=== PATIENT | male | born 1950 | race Asian ===

== ENCOUNTER 2017-06-23 05:58 | Day surgery (SDC) | payer OTHER ==
[2017-06-23] VITALS (10 sets, daily range): BP systolic 140–172; BP diastolic 67–81; PULSE 72–80; RESP 12–19; Ht 180.3 cm; Wt 98.1 kg
[~2017-06-23] VITALS: Ht 180.3 cm; Wt 98.1 kg
[2017-06-23] MEDS ORDERED: MOXIFLOXACIN 0.5% 3 ML OPH OPER SCH (06:00)
[2017-06-23] MEDS ORDERED: TROPICAMIDE 1% 2 ML OPH OPER SCH (06:00)
[2017-06-23] MEDS ORDERED: DICLOFENAC 0.1% 2.5 ML OPH OPER SCH (06:00)
[2017-06-23] MEDS ORDERED: SOD CHLORIDE 0.9% 1,000 ML IV SCH (06:00)
[2017-06-23] MEDS ORDERED: CYCLOPENTOLATE/PHENYLEPH 2 ML OPH OPER SCH (06:00)
--- NOTE | 2017-06-23 06:52 | PREOPHP ---
DATE OF ADMISSION: 06/23/2017 HISTORY OF PRESENT ILLNESS: This -[id number]-wmh gentleman is admitted for elective cataract surgery of the left eye. The patient has had decreased vision for the past year's time involving both eyes . 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 Patient's systemic history is positive for insulin-dependent diab etes mellitus for the past 15 years as well as systemic hypertension and diabetic neuropathy. CURRENT MEDICATIONS INCLUDE: 1. Metformin. 2. Gabapentin. 3. Hydrochlorothiazide. 4. Losartan. 5. Lantus insulin. 6. Aspirin (discontinued 1 week prior to surgery). PHYSICAL EXAMINATION: The visual acuity with best correction is 20/60 in the eye and 20/70 in the eye. Slit lamp examination reveals nuclear sclerotic cataracts in both eyes with the lef t eye having anterior cortical changes. Both eyes have formation within the lens. ...Applana tion tonometry is 19 mmHg. Examination of the retina reveals the presence of background diabetic re tinopathy with intraretinal hemorrhage and exudate present. DIAGNOSIS: Cataract, left eye. PLAN: Cataract extraction with lens implant, left eye. The risks and alternatives to the surgery h ave been discussed with the patient as well as the hope for improvement of visual acuity leading to a greater in her ability to perform activities of daily living. The patient understands this and ag mohan to proceed with surgery. Dictated By: MAGALY CHIANG/SYDNEY Conf#: [id number] DID#: [id number]
[2017-06-23] MEDS ORDERED: LIDOCAINE 4% (MPF) 5 ML INJ ONE (06:55)
[2017-06-23] MEDS ORDERED: CEFAZOLIN 1 GM INJ ONE (06:55)
[2017-06-23] MEDS ORDERED: TETRACAINE 0.5% 4 ML OPH ONE (06:56)
[2017-06-23] MEDS ORDERED: MOXIFLOXACIN 0.5% 3 ML OPH ONE (06:56)
[2017-06-23] MEDS ORDERED: CARBACHOL 0.01% 1.5 ML OPH INJ ONE (06:56)
[2017-06-23] MEDS ORDERED: LIDOCAINE 1% (MPF) 10 ML INJ ONE (06:56)
[2017-06-23] MEDS ORDERED: GENTAMICIN 80 MG INJ ONE (06:57)
[2017-06-23] MEDS ORDERED: DEXAMETHASONE 4 MG/ML 1 ML INJ ONE (06:57)
[2017-06-23] MEDS ORDERED: EPINEPHrine 1 MG INJ ONE (06:57)
[2017-06-23] MEDS ORDERED: LIDOCAINE 1% (STERILE-PAK) 30 ML INJ ONE (06:59)
[2017-06-23] MEDS ORDERED: PROPOFOL 20 ML ONE (07:01)
[2017-06-23] MEDS ORDERED: SODIUM CL BACTERIOSTATIC 30 ML INJ ONE ×2 (07:09→07:38)
[2017-06-23] MEDS ORDERED: METF1000 PO (07:22)
[2017-06-23] MEDS ORDERED: LOSA50TA6 PO (07:22)
[2017-06-23] MEDS ORDERED: NPH SQ (07:22)
[2017-06-23] MEDS ORDERED: GABA300C PO (07:22)
[2017-06-23] MEDS ORDERED: HYDR25TA6 PO (07:22)
[2017-06-23] MEDS ORDERED: ONDANSETRON 4 MG INJ IV PRN (07:30)
[2017-06-23] MEDS ORDERED: LABETALOL HCL 20MG INJ IV PRN (07:30)
[2017-06-23] MEDS ORDERED: hydrALAzine 20 MG INJ IV PRN (07:30)
[2017-06-23] MEDS ORDERED: FENTAnyl 50 MCG/ML VIAL IV PRN ×2 (07:30)
[2017-06-23] MEDS ORDERED: MEPERIDINE 25 MG INJ IV PRN (07:30)
[2017-06-23] MEDS ORDERED: HYDROmorphONE (0.2 MG/ML) 10ML SYG IV PRN ×3 (07:30)
--- NOTE | 2017-06-23 08:41 | SIPON ---
Date/Time of Note Date/Time of Note DATE: 06/23/17 TIME: 08:39 Operative Report Preoperative Diagnosis cataract os Postoperative Diagnosis same Operation/Procedure Performed cataract extraction with lens implant os Surgeon see signature line multimedia assistant none Anesthesia: MAC Estimated blood loss: none Transfusion Required none Specimen none Grafts/Implants posterior chamber lens implant Complications anterior vitrectomy required MAGALY SANCHEZ MD Jun 23, 2017 08:40
--- NOTE | 2017-06-23 08:41 | SIPON ---
Date/Time of Note Date/Time of Note DATE: 06/23/17 TIME: 08:39 Operative Report Preoperative Diagnosis cataract os Postoperative Diagnosis same Operation/Procedure Performed cataract extraction with lens implant os Surgeon see signature line activities assistant none Anesthesia: MAC Estimated blood loss: none Transfusion Required none Specimen none Grafts/Implants posterior chamber lens implant Complications anterior vitrectomy required MAGALY SANCHEZ MD Jun 23, 2017 08:40
--- NOTE | 2017-06-23 08:41 | SIPON ---
Date/Time of Note Date/Time of Note DATE: 06/23/17 TIME: 08:39 Operative Report Preoperative Diagnosis cataract os Postoperative Diagnosis same Operation/Procedure Performed cataract extraction with lens implant os Surgeon see signature line seismic survey assistant none Anesthesia: MAC Estimated blood loss: none Transfusion Required none Specimen none Grafts/Implants posterior chamber lens implant Complications anterior vitrectomy required MAGALY SANCHEZ MD Jun 23, 2017 08:40
--- NOTE | 2017-06-23 09:31 | OPR ---
DATE OF OPERATION: 06/23/2017 PREOPERATIVE DIAGNOSIS: Cataract, left eye. POSTOPERATIVE DIAGNOSIS: Cataract, left eye. OPERATION PERFORMED: Cataract extraction with lens implant, left eye. SURGEON: Magaly Harp. ANESTHESIA: Dr. Jose. DESCRIPTION OF OPERATION: The patient brought to the operating room on an eye gurney, positioned ap propriately, attached to electrocardiogram monitoring, given oxygen via nasal cannula. After some i ntravenous sedation was administered, the patient received local anesthesia using lidocaine 4%, give n a lid block and retrobulbar injection. The patient was then prepped and draped in the usual steri le manner. A speculum was inserted between the lids of the left eye. A Superblade was then used to create 2 paracentesis incisions at the nasal and temporal limbal areas and then a 3.0 mm keratome w as used to enter the anterior chamber through the 12 o'clock position in a stepped corneal incision. Through this opening, an irrigating cystotome was introduced, the anterior chamber was filled with Viscoat and an anterior capsulotomy was performed. Balanced salt solution was used for hydrodissec tion. Phacoemulsification of the lens nucleus was performed and during this process following compl etion of the removal of lens nucleus, it was noted that there was a break in the inferonasal quadran t of the posterior capsule and some formed vitreous was present. A limited anterior vitrectomy was performed using mechanical vitrectomy instrumentation. It was noted that there appeared to be suffi cient capsular support for posterior chamber lens, and therefore, the incision was slightly enlarged and after injecting additional Viscoat a 20.5 diopter posterior chamber intraocular lens was insert ed anterior to the capsular remnants in the posterior chamber. The lens, however, did not center, a ppeared not to have support in the nasal quadrant. It was decided that it was appropriate to remove the lens from the eye. In order to do so the wound was again enlarged to approximately 7 mm and th e lens was then removed. Following this, it was noted that there was some scleral collapse present due to the prior vitrectomy and in order to reconstitute the appropriate architecture of the globe, 4 interrupted 10-0 nylon sutures were placed and were tied. Additional Viscoat was injected into th e anterior chamber. The globe appeared to reestablish its normal architecture. Inspection of the c apsule allowed determination that there was capsular support if the lens haptics were placed in a di agonal orientation. One suture was opened and then Provisc was injected into the anterior chamber. The 20.5 diopter posterior chamber lens was then reinserted into the posterior chamber with the hap tics oriented in the diagonal orientation. The lens remained centered and despite external pressure , appeared not to move. One additional 10-0 nylon suture was placed and tied. The ends were all cu t short. Provisc was aspirated from the anterior chamber and then all suture knots were buried. Mi ostat was instilled to constrict the pupil and the eye appeared stable, 0.5 mL of dexamethasone and a 0.5 mL of Ancef were injected into the subconjunctival space in the inferior lid fornix. The spec ulum was then removed. Ciprofloxacin drops placed on the eye, and the eye was patched. The patient left the operating room in satisfactory condition. Dictated By: MAGALY CHIANG/SYDNEY Conf#: [id number] DID#: [id number]
== END 2017-06-23 10:00 | disposition home or self-care (01) ==
LOC: SDS 05:58
PROVIDERS: ATTEND Ophthalmology
DX: H25.12 Age-related nuclear cataract, left eye (principal); I10 Essential (primary) hypertension; E11.9 Type 2 diabetes mellitus without complications
CPT/HCPCS: 66984; 82962; J0171; J0690; J1100; J1580; V2632; Z7512; Z7610